=== PATIENT | female | born 1970 | race Caucasian/White ===

== ENCOUNTER 2018-04-25 09:20 | Day surgery (SDC) | payer OTHER ==
[2018-04-25] MEDS ORDERED: Lactated Ringers 1,000 ML IV SCH (09:30)
--- NOTE | 2018-04-25 09:40 | PCM.PREANE ---
Preanesthetic Assessment - Anesthesia/Transfusion/Family Hx Anesthesia History: Prior Anesthesia Without Reaction Family History of Anesthesia Reaction: No Transfusion History: No Prior Transfusion(s) - Review of Systems General: No Symptoms Pulmonary: No Symptoms Cardiovascular: No Symptoms Gastrointestinal: No Symptoms Neurological: No Symptoms Other: Reports: None - Physical Assessment NPO Status Date: 04/24/18 Height: 1.68 m Weight: 61.689 kg ASA Class: 1 Mental Status: Alert & Oriented x3 Airway Class: Mallampati = 1 Dentition: Reports: Normal Dentition ROM/Head Extension: Full Lungs: Clear to Auscultation, Normal Respiratory Effort Cardiovascular: Regular Rate, Regular Rhythm - Allergies Allergies/Adverse Reactions: Allergies Allergy/AdvReac Type Severity Reaction Status Date / Time latex Allergy Rash Verified 04/22/18 12:03 apples Allergy Airway Uncoded 04/22/18 12:03 Tightness bananas Allergy Airway Uncoded 04/22/18 12:03 Tightness - Anesthesia Plan Pre-Op Medication Ordered: None - Acknowledgements Anesthesia Type Planned: MAC Pt an Appropriate Candidate for the Planned Anesthesia: Yes Alternatives and Risks of Anesthesia Discussed w Pt/Guardian: Yes Pt/Guardian Understands and Agrees with Anesthesia Plan: Yes PreAnesthesia Questionnaire HEENT History: Reports: Other (See Below) Other HEENT History: has a dental "flipper" Respiratory History: Reports: Asthma Other Respiratory History: hx of asthma as a child- no inhaler for 19 years [employer] History: Reports: Endocrine/Metabolic History: Reports: Hypothyroidism - Past Surgical History HEENT Surgical History: Reports: LASIK Female Surgical History: Reports: Section - SUBSTANCE USE Smoking Status *Q: Current Every Day Smoker Tobacco Use Within Last Twelve Months: Cigarettes Recreational Drug Use History: No - HOME MEDS Home Medications: Home Meds Levothyroxine [Synthroid] 88 mcg PO QAM 04/22/18 [History] - CURRENT (IN HOUSE) MEDS Current Meds: Current Medications Lactated Ringer's (Ringers, Lactated) 1,000 mls @ 100 mls/hr IV ASDIRECTED [facility]
[2018-04-25] MEDS ORDERED: Propofol 200 MG/20 ML SDV ONE ×2 (11:03→11:15)
[2018-04-25] MEDS ORDERED: Lidocaine 2% 5 ML SDV ONE (11:15)
[2018-04-25] MEDS ORDERED: Midazolam 1 MG/ML 2 ML SDV ONE (11:15)
[2018-04-25] MEDS ORDERED: fentaNYL 100 MCG/2 ML SDV ONE (11:15)
--- NOTE | 2018-04-25 12:14 | PCM.OPNOTE ---
- General Post-Op/Procedure Note Date of Surgery/Procedure: 04/25/18 Operative Procedure(s): Screening colonoscopy Findings: Hepatic flexure polyp, sigmoid colon polyps x 4 Pre Op Diagnosis: Screening colonoscopy Post-Op Diagnosis: Hepatic flexure polyp, sigmoid colon polyp x 4 Anesthesia Technique: MAC Primary Surgeon: Sara Mendez Condition: Good
--- NOTE | 2018-04-25 12:46 | PCM.POSTAN ---
POST ANESTHESIA ASSESSMENT - MENTAL STATUS Mental Status: Alert, Oriented - RESPIRATORY Respiratory Status: Respiratory Rate WNL, Airway Patent, O2 Saturation Stable - CARDIOVASCULAR CV Status: Pulse Rate WNL, Blood Pressure Stable - GASTROINTESTINAL GI Status: No Symptoms - POST OP HYDRATION Hydration Status: Adequate & Stable
--- NOTE | 2018-04-25 12:47 | PCM48HPAN ---
Post Anesthesia Note - EVALUATION WITHIN 48HRS OF ANESTHETIC Vital Signs in Normal Range: Yes Patient Participated in Evaluation: Yes Respiratory Function Stable: Yes Airway Patent: Yes Cardiovascular Function Stable: Yes Hydration Status Stable: Yes Pain Control Satisfactory: Yes Nausea and Vomiting Control Satisfactory: Yes Mental Status Recovered: Yes Resp Rate: 11
--- NOTE | 2018-04-25 16:40 | OR ---
SURGEON: BRYNN VELÁSQUEZ MD DATE OF PROCEDURE: 04/25/2018 PREOPERATIVE DIAGNOSIS: Screening colonoscopy. POSTOPERATIVE DIAGNOSES: 1. Hepatic flexure polyp. 2. Sigmoid colon polyps x4. PROCEDURE: Screening colonoscopy. ANESTHESIA: MAC. INSTRUMENT USED: Olympus colonoscope. EXTENT OF EXAM: To the cecum. PREPARATION: Good. LIMITATIONS: None. INDICATIONS: The patient is a 48-year-old female, who presents for the first time colonoscopy. She has a family history of colon cancer. Her mother was diagnosed in her early 60s. We discussed the need for the procedure, expected perioperative course, and the risks including bleeding, infection, or damage to surrounding structures including perforation. The patient verbalized understanding and wishes to proceed. PROCEDURE IN DETAIL: The patient was brought to the endoscopy suite and placed in the left lateral decubitus position. A time-out was completed verifying the patient's name, age, date of , allergies, and procedure to be performed. Monitored anesthesia care was induced and continuous oxygen was provided via face mask throughout the procedure. After adequate sedation was achieved, a digital rectal exam was performed. This exam was within normal limits. A well lubricated colonoscope was inserted in the rectum and advanced under direct visualization to level of the cecum. The cecum was identified by both visual and anatomic landmarks. A photograph was taken of the cecal cap as well as with the scope retroflexed within the cecum. The scope was then fully withdrawn while examining the color, texture, anatomy, and integrity of the mucosa from the cecum to the anal canal. The patient was found to have a 4 to 5 mm polyp at the hepatic flexure. This was removed using a hot biopsy snare. The patient was then found to have four different polyps with scattered throughout the sigmoid colon. The largest of these was in the very distal sigmoid colon right before the start of the rectum at approximately 5 cm from the anus. This was 6 to 10 mm in size and on a pedunculated stalk, hot biopsy snare was used to excise this. The three other polyps were measured 3 to 4 mm in size were removed using a cold biopsy forceps. The scope was then brought into the rectum and retroflexed to allow visualization of the anal canal opening. This appeared normal and a photograph was taken. The scope was then straightened out and fully withdrawn. The cecum to anus time was 13 minutes. The patient tolerated procedure well and was taken to PACU in stable condition. LEMEASH / MODL /[id number]
== END 2018-04-25 13:20 | disposition home or self-care (01) ==
LOC: MW.SDS 09:20
PROVIDERS: ATTEND Surgery
DX: Z12.11 Encounter for screening for malignant neoplasm of colon (principal); D12.3 Benign neoplasm of transverse colon; D12.5 Benign neoplasm of sigmoid colon; J45.909 Unspecified asthma, uncomplicated; F17.210 Nicotine dependence, cigarettes, uncomplicated; Z91.018 Allergy to other foods; Z91.040 Latex allergy status; Z80.0 Family history of malignant neoplasm of digestive organs
CPT/HCPCS: 45380; 45385; 81025; J2250; J2704; J3010; J7120

== ENCOUNTER 2019-07-29 09:35 | Day surgery (SDC) | payer OTHER ==
[~2019-07-29 09:35] MED LIST: Lactated Ringers 1,000 ML IV SCH; Sodium Chloride 0.9% 10 ML SDV IV PRN; Sodium Chloride 0.9% 10 ML Syringe FLUSH PRN; Sodium Chloride 0.9% 2.5 ML Syringe FLUSH PRN
--- NOTE | 2019-07-29 10:31 | PCM.PREANE ---
Preanesthetic Assessment - Anesthesia/Transfusion/Family Hx Anesthesia History: Prior Anesthesia Without Reaction Family History of Anesthesia Reaction: No Transfusion History: No Prior Transfusion(s) Intubation History: Unknown - Review of Systems General: No Symptoms Pulmonary: No Symptoms Cardiovascular: No Symptoms Gastrointestinal: No Symptoms, Other (h/o multiple colon polyps last year) Neurological: No Symptoms Other: Reports: None - Physical Assessment NPO Status Date: 07/29/19 NPO Status Time: 07:40 Vital Signs: Last Vital Signs Temp 35.9 C 07/29/19 10:07 Pulse 78 07/29/19 10:07 Resp 16 07/29/19 10:07 BP 146/93 H 07/29/19 10:07 Pulse Ox 97 07/29/19 10:07 Height: 5 ft 6 in Weight: 62.142 kg ASA Class: 2 Mental Status: Alert & Oriented x3 Airway Class: Mallampati = 2 Dentition: Reports: Normal Dentition, Partial ( one tooth upper left) Thyro-Mental Finger Breadths: 3 Mouth Opening Finger Breadths: 3 ROM/Head Extension: Full Lungs: Clear to Auscultation, Normal Respiratory Effort Cardiovascular: Regular Rate, Regular Rhythm - Lab Values: Laboratory Last Values Urine HCG, Qual NEGATIVE (NEGATIVE) 07/29/19 09:50 - Allergies Allergies/Adverse Reactions: Allergies Allergy/AdvReac Type Severity Reaction Status Date / Time latex Allergy Rash Verified 07/23/19 09:32 apples Allergy Airway Uncoded 07/23/19 09:32 Tightness bananas Allergy Airway Uncoded 07/23/19 09:32 Tightness - Blood Blood Available: No - Acknowledgements Anesthesia Type Planned: MAC Pt an Appropriate Candidate for the Planned Anesthesia: Yes Alternatives and Risks of Anesthesia Discussed w Pt/Guardian: Yes Pt/Guardian Understands and Agrees with Anesthesia Plan: Yes PreAnesthesia Questionnaire HEENT History: Reports: Other (See Below) Other HEENT History: has a dental upper "flipper" Cardiovascular History: Reports: None Respiratory History: Reports: Asthma Other Respiratory History: hx of asthma as a child- no inhaler for 19 years Gastrointestinal History: Reports: Colon Polyp (multiple colon polyps last year colonoscopy) Genitourinary History: Reports: 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: Musculoskeletal History: Reports: None Neurological History: Reports: None Psychiatric History: Reports: None Endocrine/Metabolic History: Reports: Hypothyroidism Hematologic History: Reports: None Immunologic History: Reports: None Oncologic (Cancer) History: Reports: None Dermatologic History: Reports: None - Past Surgical History Head Surgeries/Procedures: Reports: None HEENT Surgical History: Reports: LASIK Cardiovascular Surgical History: Reports: None Respiratory Surgical History: Reports: None GI Surgical History: Reports: Colonoscopy Female Surgical History: Reports: Section Endocrine Surgical History: Reports: None Neurological Surgical History: Reports: None Musculoskeletal Surgical History: Reports: None Oncologic Surgical History: Reports: None Dermatological Surgical History: Reports: None - SUBSTANCE USE Smoking Status *Q: Current Every Day Smoker (< 1 ppd) Tobacco Use Within Last Twelve Months: Cigarettes - HOME MEDS Home Medications: Home Meds Levothyroxine [Synthroid] 88 mcg PO QAM 04/22/18 [History] - CURRENT (IN HOUSE) MEDS Current Meds: Current Medications Lactated Ringer's (Ringers, Lactated) 1,000 mls @ 125 mls/hr IV ASDIRECTED [facility]E Last Admin: 07/29/19 10:05 Dose: 125 mls/hr Sodium Chloride (Saline Flush) 10 ml FLUSH ASDIRECTED PRN PRN Reason: Keep Vein Open Sodium Chloride (Saline Flush) 2.5 ml FLUSH ASDIRECTED PRN PRN Reason: Keep Vein Open Sodium Chloride (Saline Flush) 10 ml FLUSH ASDIRECTED PRN PRN Reason: Keep Vein Open Sodium Chloride (Saline Flush) 2.5 ml FLUSH ASDIRECTED PRN PRN Reason: Keep Vein Open Sodium Chloride (Normal Saline) 10 ml IV ASDIRECTED PRN PRN Reason: IV Use
[2019-07-29] MEDS ORDERED: Propofol 200 MG/20 ML SDV ONE ×2 (12:28→12:53)
--- NOTE | 2019-07-29 13:20 | PCM.POSTAN ---
POST ANESTHESIA ASSESSMENT - MENTAL STATUS Mental Status: Alert, Oriented - VITAL SIGNS Vital Signs: Last Vital Signs Temp 37 C 07/29/19 13:02 Pulse 65 07/29/19 13:14 Resp 20 07/29/19 13:14 BP 148/94 H 07/29/19 13:14 Pulse Ox 95 07/29/19 13:14 - RESPIRATORY Respiratory Status: Respiratory Rate WNL, Airway Patent, O2 Saturation Stable - CARDIOVASCULAR CV Status: Pulse Rate WNL, Blood Pressure Stable - GASTROINTESTINAL GI Status: No Symptoms - PAIN Pain Score: 0 - POST OP HYDRATION Hydration Status: Adequate & Stable - OBSERVATIONS Free Text/Narrative:: No anesthesia problems
--- NOTE | 2019-07-29 13:40 | PCM48HPAN ---
Post Anesthesia Note - EVALUATION WITHIN 48HRS OF ANESTHETIC Vital Signs in Normal Range: Yes Patient Participated in Evaluation: Yes Respiratory Function Stable: Yes Airway Patent: Yes Cardiovascular Function Stable: Yes Hydration Status Stable: Yes Pain Control Satisfactory: Yes Nausea and Vomiting Control Satisfactory: Yes Mental Status Recovered: Yes Vital Signs: Last Vital Signs Temp 35.7 C 07/29/19 13:25 Pulse 70 07/29/19 13:25 Resp 16 07/29/19 13:25 BP 175/83 H 07/29/19 13:25 Pulse Ox 97 07/29/19 13:25 - COMMENTS/OBSERVATIONS Free Text/Narrative:: no anesthesia problems
--- NOTE | 2019-07-29 14:13 | PCM.OPNOTE ---
- General Post-Op/Procedure Note Date of Surgery/Procedure: 07/29/19 Operative Procedure(s): Colonoscopy Findings: Sigmoid colon polyp Pre Op Diagnosis: History of colon polyps Post-Op Diagnosis: Sigmoid colon polyp Anesthesia Technique: MAC Primary Surgeon: Sara Mendez Condition: Good
--- NOTE | 2019-07-29 18:41 | OR ---
SURGEON: SARA MENDEZ MD DATE OF PROCEDURE: 07/29/2019 PREOPERATIVE DIAGNOSIS: History of colon polyps. POSTOPERATIVE DIAGNOSIS: Sigmoid colon polyp. PROCEDURE PERFORMED: Diagnostic colonoscopy with polypectomy. PRIMARY SURGEON: Sara Mendez MD. ANESTHESIA: MAC. INSTRUMENT USED: Olympus colonoscope. EXTENT OF EXAM: To the cecum. PREPARATION: Good. LIMITATIONS: None. INDICATIONS FOR EXAMINATION: The patient is a 49-year-old female who had multiple colon polyps removed last year during routine colonoscopy. Some of these were advanced. The decision was made to proceed with a repeat colonoscopy in 1 year. The patient and I discussed the procedure; expected perioperative course; and the risks including bleeding, infection, or damage to surrounding structures including perforation. The patient verbalized understanding and wishes to proceed. PROCEDURE IN DETAIL: The patient was brought into the endoscopy suite and placed in a left lateral decubitus position. A time-out was completed verifying the patient's name, age, date of , allergies, and procedure to be performed. Monitored anesthesia care was induced and continuous oxygen was provided via nasal cannula throughout the procedure. After adequate sedation was achieved, a digital rectal exam was performed. This exam was within normal limits. A well-lubricated colonoscope was inserted in the rectum and advanced under direct visualization to the level of the cecum. The cecum was identified by both visual and anatomic landmarks. A photograph was taken of the cecal cap; however, I was unable to retroflex the scope within the cecum due to looping of the scope more proximally. The scope was then fully withdrawn while examining the color, texture, anatomy, and integrity of mucosa from the cecum to the anal canal. In the proximal sigmoid colon, the patient was found to have a sessile polyp. This was removed in piecemeal fashion using cold biopsy forceps. The scope was then brought into the rectum and retroflexed to allow visualization of the anal canal opening. This appeared normal and a photograph was taken. The scope was then straightened out and fully withdrawn. The cecum to anus time was 9 minutes. The patient tolerated the procedure well and was transferred to the PACU in stable condition. ENDOSCOPIC DIAGNOSIS: Sigmoid colon polyp. RECOMMENDATIONS: Follow up in clinic in 2 weeks. MILTON SANTAMARIA /[id number]
== END 2019-07-29 13:39 | disposition home or self-care (01) ==
LOC: MW.SDS 09:35
PROVIDERS: ATTEND Surgery
DX: D12.5 Benign neoplasm of sigmoid colon (principal); E03.9 Hypothyroidism, unspecified; F17.210 Nicotine dependence, cigarettes, uncomplicated; J45.909 Unspecified asthma, uncomplicated; Z91.040 Latex allergy status; Z91.018 Allergy to other foods; Z88.8 Allergy status to other drugs, medicaments and biological substances; Z79.899 Other long term (current) drug therapy; Z80.0 Family history of malignant neoplasm of digestive organs
CPT/HCPCS: 45380; 81025; J2704; J7120; 88305

== ENCOUNTER 2019-08-11 13:19 | Emergency (ER) | payer OTHER ==
--- NOTE | 2019-08-11 13:37 | EDM.PDOC ---
ED HPI GENERAL MEDICAL PROBLEM - General Chief Complaint: Upper Extremity Injury/Pain Stated Complaint: HURT LT MIDDLE FINGER Time Seen by Provider: 08/11/19 13:35 Source of Information: Reports: Patient History Limitations: Reports: No Limitations - History of Present Illness INITIAL COMMENTS - FREE TEXT/NARRATIVE: HISTORY AND PHYSICAL: History of present illness: patient is a 49-year-old female who presents to the emergency room with a complaint of laceration across her MIP joint of the left third digit. She works at a [employer] shop and a vase had broken, resulting in the laceration across her knuckle. She is unsure of her last tetanus update. Offers no syomplaints. Review of systems: As per history of present illness and below otherwise all systems reviewed and negative. Past medical history: As per history of present illness and as reviewed below otherwise noncontributory. Surgical history: As per history of present illness and as reviewed below otherwise noncontributory. Social history: See social history for further information Family history: As per history of present illness and as reviewed below otherwise noncontributory. Physical exam: General: well developed and well nourished 49-year-old female. Alert and oriented. Nontoxic appearing and in no acute distress. HEENT: Atraumatic, normocephalic, pupils equal and reactive bilaterally, negative for conjunctival pallor or scleral icterus, mucous membranes moist, trachea midline. No drooling or trismus noted. No meningeal signs. No hot potato voice noted. Lungs: Clear to auscultation, breath sounds equal bilaterally. Skin: 2 cm "U" shape laceration to the MIP joint of the right third digit. Otherwise skin is intact, warm, dry. No lesions or rashes noted. Extremities: see skin for details, no tendon involvement, moves all extremities per self without difficulty or deficits, negative for cords or calf pain. Neurovascular unremarkable. Neuro: Awake, alert, oriented. Cranial nerves II through XII unremarkable. Cerebellum unremarkable. Motor and sensory unremarkable throughout. Exam nonfocal. Notes: x-ray shows no acute findings. The area was thoroughly cleansed with chlorhexidine. 1% lidocaine was used usual and customary procedures were followed for suture placement. 5-0 chromic, #3 interrupted sutures were placed. Patient tolerated well. Supportive care measures were reviewed and discussed. Voices understanding and is agreeable to plan of care. Denies any further questions or concerns at this time. Diagnostics: X-ray Therapeutics: Tdap, 1% lidocaine Prescription: None Impression: Laceration Plan: 1. Rest, ice, elevate the affected extremity. Please wear the splint as directed. stitches need to be removed in 7-10 days. 2. Tylenol and/or Ibuprofen as needed for pain management. 3. Follow up with the Orthopedic provider as we discussed. Return to the ED as needed and as discussed. Definitive disposition and diagnosis as appropriate pending reevaluation and review of above. - Related Data Allergies Allergy/AdvReac Type Severity Reaction Status Date / Time latex Allergy Rash Verified 08/11/19 14:01 apples Allergy Airway Uncoded 08/11/19 14:01 Tightness bananas Allergy Airway Uncoded 08/11/19 14:01 Tightness Home Meds: Home Meds Levothyroxine [Synthroid] 88 mcg PO QAM 04/22/18 [History] Past Medical History HEENT History: Reports: Other (See Below) Other HEENT History: has a dental upper "flipper" Cardiovascular History: Reports: None Respiratory History: Reports: Asthma Other Respiratory History: hx of asthma as a child- no inhaler for 19 years Gastrointestinal History: Reports: Colon Polyp (multiple colon polyps last year colonoscopy) Genitourinary History: Reports: None IT INTERN History: Reports: Musculoskeletal History: Reports: None Neurological History: Reports: None Psychiatric History: Reports: None Endocrine/Metabolic History: Reports: Hypothyroidism Hematologic History: Reports: None Immunologic History: Reports: None Oncologic (Cancer) History: Reports: None Dermatologic History: Reports: None - Past Surgical History Head Surgeries/Procedures: Reports: None HEENT Surgical History: Reports: LASIK Cardiovascular Surgical History: Reports: None Respiratory Surgical History: Reports: None GI Surgical History: Reports: Colonoscopy Female Surgical History: Reports: Section Endocrine Surgical History: Reports: None Neurological Surgical History: Reports: None Musculoskeletal Surgical History: Reports: None Oncologic Surgical History: Reports: None Dermatological Surgical History: Reports: None Review of Systems - Review of Systems Review Of Systems: ROS reveals no pertinent complaints other than HPI. ED EXAM, GENERAL - Physical Exam Exam: See Below (See dictation) ED TRAUMA EXTREMITY PROCEDURES - Laceration/Wound Repair right 3rd digit Lac/Wound Length In cm: 2 Appearance: Superficial, Clean Distal NVT: Neuro & Vascular Intact, No Tendon Injury Anesthetic Type: Local Local Anesthesia - Lidocaine (Xylocaine): 1% Plain Local Anesthetic Volume: 2cc Skin Prep: Chlorhexidine (Hibiciens), Saline, Sterile Drape Saline Irrigation (cc's): 25 Exploration/Debridement/Repair: Wound Explored, In a Bloodless Field, Explored to Base, No Foreign Material Found Closed With: Sutures Suture Size: 5-0 Suture Type: Interrupted, Simple (Chromic) Drain Placement: No Sterile Dressing Applied: Provider Tetanus Status Addressed: Yes Complications: No Course - Vital Signs Last Recorded V/S: Last Vital Signs Temp 96.9 F 08/11/19 14:01 Pulse 68 08/11/19 14:01 Resp 16 08/11/19 14:01 BP 154/96 H 08/11/19 14:01 Pulse Ox 97 08/11/19 14:01 - Orders/Labs/Meds Orders: Active Orders 24 hr Category Date Time Status Vaccines to be Administered [RC] PER UNIT ROUTINE Care 08/11/19 14:06 Active Meds: Medications Discontinued Medications Generic Name Dose Route Start Last Admin Trade Name Freq PRN Reason Stop Dose Admin Diphtheria/Tetanus/Acell Pertussis 0.5 ml 08/11/19 14:06 08/11/19 14:51 Adacel IM 08/11/19 14:07 0.5 ml .ONCE ONE Administration Lidocaine HCl 2 ml 08/11/19 14:06 08/11/19 14:50 Xylocaine-Mpf 1% INJECT 08/11/19 14:07 2 ml ONETIME ONE Administration Departure - Departure Time of Disposition: 14:35 Disposition: Home, Self-Care 01 Clinical Impression: Laceration - Discharge Information Instructions: Laceration Care, Adult Referrals: PCP,None [Primary Care Provider] - Forms: ED Department Discharge Additional Instructions: The following information is given to patients seen in the emergency department who are being discharged to home. This information is to outline your options for follow-up care. We provide all patients seen in our emergency department with a follow-up referral. The need for follow-up, as well as the timing and circumstances, are variable depending upon the specifics of your emergency department visit. If you don't have a primary care physician on staff, we will provide you with a referral. We always advise you to contact your personal physician following an emergency department visit to inform them of the circumstance of the visit and for follow-up with them and/or the need for any referrals to a consulting specialist. The emergency department will also refer you to a specialist when appropriate. This referral assures that you have the opportunity for follow-up care with a specialist. All of these measure are taken in an effort to provide you with optimal care, which includes your follow-up. Under all circumstances we always encourage you to contact your private physician who remains a resource for coordinating your care. When calling for follow-up care, please make the office aware that this follow-up is from your recent emergency room visit. If for any reason you are refused follow-up, please contact the [facility] Emergency Department at and asked to speak to the emergency department charge nurse. [facility] [address] [place] [address] [place] [address] 1. Rest, ice, elevate the affected extremity. Please wear the splint as directed. stitches need to be removed in 7-10 days. 2. Tylenol and/or Ibuprofen as needed for pain management. 3. Follow up with the Orthopedic provider as we discussed. Return to the ED as needed and as discussed. - My Orders Last 24 Hours: My Active Orders 08/11/19 14:06 Vaccines to be Administered [RC] PER UNIT ROUTINE - Assessment/Plan Last 24 Hours: My Active Orders 08/11/19 14:06 Vaccines to be Administered [RC] PER UNIT ROUTINE
[2019-08-11] MEDS ORDERED: Diphtheria,Pertussis(Acell),Tetanus Vaccine 0.5 ML Syringe IM ONE (14:06)
[2019-08-11] MEDS ORDERED: Lidocaine 1% PF 2 ML SDV INJECT ONE (14:06)
--- NOTE | 2019-08-11 14:21 | CR ---
Left hand: Three views of the left hand were obtained. Comparison: No prior and exam. No fracture, dislocation or other bony abnormality is seen. No bony erosions are noted. Impression: Nothing acute is appreciated on left hand exam. Diagnostic code #1 [id number]
== END 2019-08-11 15:00 | disposition home or self-care (01) ==
LOC: MW.ED 13:19
DX: S61.213A Laceration without foreign body of left middle finger without damage to nail, initial encounter (principal); E03.9 Hypothyroidism, unspecified; Z79.899 Other long term (current) drug therapy; Z23 Encounter for immunization; Z91.018 Allergy to other foods; W25.XXXA Contact with sharp glass, initial encounter; Y92.513 Shop (commercial) as the place of occurrence of the external cause; Y99.0 Civilian activity done for income or pay
CPT/HCPCS: 12001; 73130; 90471; 90715; 99282; J2001; 99283

== ENCOUNTER 2019-08-19 13:49 | Emergency (ER) | payer OTHER | END 2019-08-19 14:04 | disposition left against medical advice (07) | LOC: MW.ED 13:49 | DX: Z53.21 Procedure and treatment not carried out due to patient leaving prior to being seen by health care provider (principal) ==

== ENCOUNTER 2019-09-02 07:41 | Day surgery (SDC) | payer OTHER ==
[~2019-09-02 07:41] MED LIST changes: +ceFAZolin 1 GM in Premix Bag 1 BAG IV ONE
[2019-09-02] MEDS ORDERED: Propofol 200 MG/20 ML SDV ONE ×2 (08:24→09:44)
[2019-09-02] MEDS ORDERED: Midazolam 1 MG/ML 2 ML SDV ONE (08:24)
[2019-09-02] MEDS ORDERED: Glycopyrrolate 0.2 MG/ML SDV ONE (08:38)
--- NOTE | 2019-09-02 08:42 | PCM.PREANE ---
Preanesthetic Assessment - Anesthesia/Transfusion/Family Hx Anesthesia History: Prior Anesthesia Without Reaction Family History of Anesthesia Reaction: No Transfusion History: No Prior Transfusion(s) Intubation History: Unknown - Review of Systems General: No Symptoms Pulmonary: No Symptoms Cardiovascular: No Symptoms Gastrointestinal: No Symptoms Neurological: No Symptoms Other: Reports: None - Physical Assessment Vital Signs: Last Vital Signs Temp 36.7 C 09/02/19 08:33 Pulse 64 09/02/19 08:33 Resp 16 09/02/19 08:33 BP 151/97 H 09/02/19 08:33 Pulse Ox 96 09/02/19 08:33 Height: 5 ft 6 in Weight: 59.874 kg ASA Class: 2 Mental Status: Alert & Oriented x3 Airway Class: Mallampati = 2 Dentition: Reports: Normal Dentition Thyro-Mental Finger Breadths: 3 Mouth Opening Finger Breadths: 3 ROM/Head Extension: Full Lungs: Clear to Auscultation, Normal Respiratory Effort Cardiovascular: Regular Rate, Regular Rhythm - Lab Values: Laboratory Last Values Urine HCG, Qual NEGATIVE (NEGATIVE) 09/02/19 07:55 - Allergies Allergies/Adverse Reactions: Allergies Allergy/AdvReac Type Severity Reaction Status Date / Time latex Allergy Rash Verified 09/02/19 08:34 apples Allergy Airway Uncoded 09/02/19 08:34 Tightness bananas Allergy Airway Uncoded 09/02/19 08:34 Tightness - Blood Blood Available: No - Anesthesia Plan Pre-Op Medication Ordered: None - Acknowledgements Anesthesia Type Planned: MAC Pt an Appropriate Candidate for the Planned Anesthesia: Yes Alternatives and Risks of Anesthesia Discussed w Pt/Guardian: Yes Pt/Guardian Understands and Agrees with Anesthesia Plan: Yes PreAnesthesia Questionnaire HEENT History: Reports: Other (See Below) Other HEENT History: has an upper removable dental "flipper" Cardiovascular History: Reports: None Respiratory History: Reports: Asthma Other Respiratory History: had asthma as a child- has not used an inhaler for over 20 years Gastrointestinal History: Reports: Colon Polyp Genitourinary History: Reports: None 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: Musculoskeletal History: Reports: None Neurological History: Reports: Other (See Below) Other Neuro History: hx of motion sickness Psychiatric History: Reports: None Endocrine/Metabolic History: Reports: Hypothyroidism Hematologic History: Reports: None Immunologic History: Reports: None Oncologic (Cancer) History: Reports: None Dermatologic History: Reports: Eczema, Other (See Below) (lipoma on the back) - Infectious Disease History Infectious Disease History: Reports: Measles - Past Surgical History Head Surgeries/Procedures: Reports: None HEENT Surgical History: Reports: LASIK Cardiovascular Surgical History: Reports: None Respiratory Surgical History: Reports: None GI Surgical History: Reports: Colonoscopy Female Surgical History: Reports: Section Endocrine Surgical History: Reports: None Neurological Surgical History: Reports: None Musculoskeletal Surgical History: Reports: None Oncologic Surgical History: Reports: None Dermatological Surgical History: Reports: None - SUBSTANCE USE Smoking Status *Q: Current Every Day Smoker Tobacco Use Within Last Twelve Months: Cigarettes Recreational Drug Use History: No - HOME MEDS Home Medications: Home Meds Levothyroxine [Synthroid] 88 mcg PO QAM 04/22/18 [History] - CURRENT (IN HOUSE) MEDS Current Meds: Current Medications Lactated Ringer's (Ringers, Lactated) 1,000 mls @ 125 mls/hr IV ASDIRECTED TAYE Last Admin: 09/02/19 08:35 Dose: 125 mls/hr Sodium Chloride (Saline Flush) 10 ml FLUSH ASDIRECTED PRN PRN Reason: Keep Vein Open Sodium Chloride (Saline Flush) 2.5 ml FLUSH ASDIRECTED PRN PRN Reason: Keep Vein Open Sodium Chloride (Normal Saline) 10 ml IV ASDIRECTED PRN PRN Reason: IV Use Discontinued Medications Cefazolin Sodium/Dextrose 1 gm (/ Premix) 50 mls @ 100 mls/hr IV ONETIME ONE Stop: 09/01/19 11:19 Midazolam HCl (Versed 1 Mg/Ml) Confirm Administered Dose 2 mg .ROUTE .STK-MED ONE Stop: 09/02/19 08:25 Propofol (Diprivan 20 Ml) Confirm Administered Dose 400 mg .ROUTE .STK-MED ONE Stop: 09/02/19 08:25
[2019-09-02] MEDS ORDERED: ceFAZolin 1 GM Vial ONE (08:57)
[2019-09-02] MEDS ORDERED: Sodium Chloride 0.9% 20 ML ONE (08:57)
[2019-09-02] MEDS ORDERED: Bupivacaine 0.5% 30 ML SDV ONE (08:57)
[2019-09-02] MEDS ORDERED: Lidocaine 1% 20 ML MDV ONE (08:57)
[2019-09-02] MEDS ORDERED: fentaNYL 100 MCG/2 ML SDV ONE (09:27)
[2019-09-02] MEDS ORDERED: Octyl 2-Cyanoacrylate 1 Tube ONE (09:50)
--- NOTE | 2019-09-02 10:27 | PCM.POSTAN ---
POST ANESTHESIA ASSESSMENT - MENTAL STATUS Mental Status: Alert, Oriented - VITAL SIGNS Vital Signs: Last Vital Signs Temp 36.2 C 09/02/19 10:05 Pulse 67 09/02/19 10:25 Resp 12 09/02/19 10:25 BP 149/93 H 09/02/19 10:25 Pulse Ox 99 09/02/19 10:25 - RESPIRATORY Respiratory Status: Respiratory Rate WNL, Airway Patent, O2 Saturation Stable - CARDIOVASCULAR CV Status: Pulse Rate WNL, Blood Pressure Stable - GASTROINTESTINAL GI Status: No Symptoms - PAIN Pain Score: 0 (No anesthesia problems) - POST OP HYDRATION Hydration Status: Adequate & Stable - OBSERVATIONS Free Text/Narrative:: No anesthesia problems
--- NOTE | 2019-09-02 10:44 | PCM.OPNOTE ---
- General Post-Op/Procedure Note Date of Surgery/Procedure: 09/02/19 Operative Procedure(s): Excision upper back mass Findings: 7.5 x 5 x1 cm multilobulated lipoma Pre Op Diagnosis: Lipoma Post-Op Diagnosis: same Anesthesia Technique: MAC Primary Surgeon: Sara Mendez Fluid Replacement, Intraop: 800 Condition: Good
--- NOTE | 2019-09-02 11:01 | PCM48HPAN ---
Post Anesthesia Note - EVALUATION WITHIN 48HRS OF ANESTHETIC Vital Signs in Normal Range: Yes Patient Participated in Evaluation: Yes Respiratory Function Stable: Yes Airway Patent: Yes Cardiovascular Function Stable: Yes Hydration Status Stable: Yes Pain Control Satisfactory: Yes Nausea and Vomiting Control Satisfactory: Yes Mental Status Recovered: Yes Vital Signs: Last Vital Signs Temp 36.2 C 09/02/19 10:05 Pulse 67 09/02/19 10:25 Resp 12 09/02/19 10:25 BP 149/93 H 09/02/19 10:25 Pulse Ox 99 09/02/19 10:25 - COMMENTS/OBSERVATIONS Free Text/Narrative:: No anesthesia problems
--- NOTE | 2019-09-02 18:54 | OR ---
SURGEON: SARA MENDEZ MD DATE OF PROCEDURE: 09/02/2019 PREOPERATIVE DIAGNOSIS: Upper back lipoma. POSTOPERATIVE DIAGNOSIS: Upper back lipoma. PROCEDURE PERFORMED: Excision of upper back mass. PRIMARY SURGEON: Sara Mendez MD. ANESTHESIA: MAC. FLUIDS: 800 mL of crystalloid. ESTIMATED BLOOD LOSS: 5 mL. FINDINGS: A 7.5 x 5 x 1 cm multilobulated lipoma of the upper back. COMPLICATIONS: None. INDICATIONS: The patient is a 49-year-old female with a large lipoma on her upper mid back. This has been there for years but is bothersome as it sits along her bra line. I discussed the need for excision. I explained the procedure, expected perioperative course, and risks including bleeding, infection, or damage to surrounding structures. She verbalized understanding and wishes to proceed. PROCEDURE IN DETAIL: Patient was brought into the endoscopy suite and placed in the right lateral decubitus position. A time-out was completed verifying the patient's name, age, date of , allergies, and procedure to be performed. The patient was secured to the bed making sure to appropriately pad all bony surfaces. Monitored anesthesia care was induced. The upper back was prepped and draped in usual standard fashion. After adequate anesthesia was achieved, I anesthetized the area overlying this mass with 0.5% Marcaine plain mixed in a 1:1 mixture with 1% lidocaine plain. A 5 cm horizontal incision was made over the apex of this mass using a 15 blade. Cautery was then used to dissect down through the skin to the subcutaneous fat layer. I then elevated the skin flaps both superiorly and inferiorly along the dermal plane. I was able to identify a fatty lobulated-appearing structure which appeared to be a lipoma. Using electrocautery, I dissected this free from the surrounding subcutaneous fat down to the level of the muscle. It was then undermined and from the muscle taking care to separate the structure without damaging the muscle bed. Once the mass was completely excised from its surrounding attachments, it was removed from the field and placed on the back table. It was measured and found to be 7.5 x 5 x 1 cm in size. It was sent to Pathology, labeled as upper back lipoma. I then inspected my operative field. Hemostasis was achieved with electrocautery. I irrigated the wound bed with normal saline until it ran clear. The wound was then closed with a running 3-0 Vicryl stitch in the deep subcutaneous fat layers. The more superficial fat layer was closed with interrupted 3-0 Vicryl sutures. The skin was then closed with a running 4-0 Monocryl stitch. Dermabond and sterile dressings were applied. The patient tolerated the procedure well and was taken to PACU in stable condition. MILTON SANTAMARIA /[id number]
== END 2019-09-02 11:15 | disposition home or self-care (01) ==
LOC: MW.SDS 07:41
PROVIDERS: ATTEND Surgery
DX: D17.1 Benign lipomatous neoplasm of skin and subcutaneous tissue of trunk (principal); E03.9 Hypothyroidism, unspecified; F17.210 Nicotine dependence, cigarettes, uncomplicated; Z91.040 Latex allergy status; Z91.018 Allergy to other foods; Z79.899 Other long term (current) drug therapy
CPT/HCPCS: 21933; 81025; A9270; J0690; J2001; J2250; J2704; J3010; J3490; J7120